=== PATIENT | male | born 2000 | race African-American/Black ===

== ENCOUNTER 2022-11-23 06:38 | Emergency (ER) | payer MEDICAID, SELFPAY ==
[2022-11-23 06:45] VITALS: BP 129/87; PULSE 65; RESP 16; TEMP 36.7; O2SAT 99; BMI 19.9
--- NOTE | 2022-11-23 06:50 | CRLHL7_ITS ---
For Patients: As a result of the Century Cures Act, medical imaging exams and procedure reports are released immediately into your electronic medical record. You may view this report before your referring provider. If you have questions, please contact your health care provider. INDICATION: Right lower quadrant abdominal pain.. TECHNIQUE: CT abdomen and pelvis acquired with 76 cc Isovue 370 IV contrast. COMPARISON: None. FINDINGS: Lower chest: Unremarkable. Liver: Unremarkable. Normal in size and attenuation. No suspicious masses. Gallbladder and bile ducts: Unremarkable. No stones or inflammation. No biliary dilatation. Pancreas: Unremarkable. No mass or inflammation. Spleen: Unremarkable. Normal in size. No masses. Adrenal glands: Unremarkable. No nodules. Kidneys: Unremarkable. No suspicious masses, stones, or hydronephrosis. GI tract: Unremarkable. Normal in caliber. No sign of mass or inflammation. A small amount of hyperdense material is seen within the appendix, which is otherwise normal in appearance (series 4, image 57). Vasculature: Abdominal aorta is normal in caliber. Mesenteric arteries are patent. Lymph nodes: No lymphadenopathy. Peritoneum/Abdominal Wall: Unremarkable. No sign of mass or infiltration. No free air or significant free fluid. Pelvis: Decompressed bladder. Otherwise unremarkable. Bones: Unremarkable for age. IMPRESSION: No acute abnormality identified to explain the patient`s abdominal pain. Please note that all CT scans at this facility use dose modulation, iterative reconstruction, and/or weight-based dosing when appropriate to reduce radiation dose to as low as reasonably achievable. Dictated by Kathrine Martin MD @ 11/23/2022 7:43:17 AM (Electronically Signed)
[2022-11-23 06:58] LABS: Basophils Absolute Auto 0.02 K/uL (0.00-0.30); Basophils Percent Auto 0.3 % (0.0-3.0); Eosinophils Absolute Auto 0.06 K/uL (0.00-0.50); Eosinophils Percent Auto 0.9 % (0.0-7.0); Hemoglobin* 14.2 gm/dL (13.5-17.5); Immature Granulocytes Abs Auto 0.01 K/uL (0.00-0.30); Immature Granulocytes Pct Auto 0.1 %; Lymphocytes Absolute Auto 2.67 K/uL (0.90-2.90); Mean Corpuscular HGB Conc 34 gm/dL (32-36); Mean Corpuscular Hemoglobin 30 pg (26-34); Mean Corpuscular Volume 89 fL (80-100); Monocytes Percent Auto 7.2 % (0.0-11.0); Neutrophils Absolute Auto 3.59 K/uL (1.7-7.0); Neutrophils Percent Auto 52.5 % (42.0-72.0); Platelet Count* 222 K/uL (140-440); RDW Coefficient of Variation % 12.8 % (11.5-15.5); Red Blood Count 4.72 m/uL (4.30-5.90); White Blood Count* 6.84 K/uL (4.50-11.00)
[2022-11-23 07:00] LABS: Slide Review Reflex No
--- NOTE | 2022-11-23 07:03 | ED_ITS ---
HPI - Abdominal Pain General Date Seen: 11/23/22 Chief Complaint: Abdominal Pain Stated Complaint: RLQ adominal pain Time Seen by Provider: 11/23/22 06:40 Source: patient Mode of arrival: ambulatory Limitations: no limitations History of Present Illness HPI narrative: Patient is a 22-year-old male presented emergency department for right lower quadrant pain. He states the pain started a couple days ago and has been getting worse. Initially states he had pain in his left lower quadrant and is now in the right lower quadrant. Denies however having pain in the umbilical region. Has not had any nausea or vomiting. Had a small bowel movement this morning otherwise been having normal bowel movements. Denies dysuria, fevers, chills, chest pain, shortness of breath, lightheadedness, dizziness, weakness, numbness. No previous abdominal surgery and still has his appendix. Has not taken anything for the pain. Related Data Home Medications Medication Instructions Recorded Confirmed No Known Home Medications 11/23/22 11/23/22 Allergies Allergy/AdvReac Type Severity Reaction Status Date / Time No Known Drug Allergies Allergy Verified 11/23/22 06:46 Review of Systems Status of ROS Reports: 10 or more systems reviewed and unremarkable except as noted in History and below PFSH PFS Social History Smoking Status: Never smoker Do you use any of these nicotine containing products: None How often do you have a drink containing alcohol: never How many standard drinks containing alcohol do you have on a typical day: 1 or 2 How often do you have six or more drinks on one occasion: Never AUDIT-C Alcohol total score: 0 Non-prescribed substance use: denies use Exam Narrative: Exam Narrative: Const: Well-nourished, Well-developed, in mild distress Eyes: PERRL, no conjunctival injection, and symmetrical lids HENT: Atraumatic external nose and ears. Moist mucous membranes. Neck: Symmetric, trachea midline, No thyromegaly. CVS: RRR, No murmurs or gallops. Peripheral pulses 2+ and equal in all extremities RESP: Unlabored respiratory effort. Clear to auscultation bilaterally. GI: Mild right lower quadrant tenderness around McBurney's point, Nondistended, No rebound or guarding. MSK:Extremities w/o deformity, Normal Active ROM Skin: Warm, Dry. No rashes or lesions. Neuro: Normal Muscle tone, No focal neurological deficits. Psych: Awake, Alert, & Oriented x3. Appropriate mood and affect. Const: Vital Signs, click to edit/add: Vital Signs - 24 hr 11/23/22 06:45 Temperature 98.1 F Pulse Rate [Left P ulse Oximeter] 65 Respiratory Rate 16 Blood Pressure [Le ft Upper Arm] 129/87 Pulse Oximetry 99 Oxygen Delivery Me thod Room Air Course Vital Signs Vital signs: Initial Vital Signs Temperature 98.1 F 11/23/22 06:45 Temperature Source Temporal Artery Scan 11/23/22 06:45 Pulse Rate 65 11/23/22 06:45 Respiratory Rate 16 11/23/22 06:45 Blood Pressure 129/87 11/23/22 06:45 Blood Pressure Mean 101 11/23/22 06:45 Blood Pressure Position Sitting 11/23/22 06:45 Pulse Oximetry 99 11/23/22 06:45 Oxygen Delivery Method Room Air 11/23/22 06:45 Vital Signs Temperature 98.1 F 11/23/22 06:45 Pulse Rate 65 11/23/22 06:45 Respiratory Rate 16 11/23/22 06:45 Blood Pressure 129/87 11/23/22 06:45 Pulse Oximetry 99 11/23/22 06:45 Oxygen Delivery Method Room Air 11/23/22 06:45 Temperature 98.1 F 11/23/22 06:45 Pulse Rate 65 11/23/22 06:45 Respiratory Rate 16 11/23/22 06:45 Blood Pressure 129/87 11/23/22 06:45 Pulse Oximetry 99 11/23/22 06:45 Oxygen Delivery Method Room Air 11/23/22 06:45 MDM - Abdominal Pain MDM Narrative Medical decision making narrative: Patient is a 22-year-old male presented emergency department for abdominal pain. Pain is in the right lower quadrant. Initially was in left lower quadrant since moved. States the pain is getting worse. Does not want anything for pain or nausea at this time. No previous abdominal surgeries. At this time differential includes appendicitis considering location. Seems unlikely to be cholecystitis, pancreatitis. Considering his age diverticulitis is less likely. No previous abdominal surgeries and did have a bowel movement today so an SBO seems unlikely. CBC, CMP, urinalysis, lipase were all ordered. CT scan of IV contrast also ordered. Lab work returns showing no concerning abnormalities. Patient still not required any medications. CT scan with IV contrast was ordered returned showing no acute abnormalities. No signs of appendicitis. I did look at the CT myself LIC large bowel constipation. This could be what is causing his pain. I spoke to the patient about constipation he states he is only having small bowel movements. I informed take several stool softeners and he is agreeable to this plan. Lab Data Labs: Lab Results 11/23/22 Range/Units 06:50 WBC 6.84 (4.50-11.00) K/uL RBC 4.72 (4.30-5.90) m/uL Hgb 14.2 (13.5-17.5) gm/dL Hct 42.0 (37.0-53.0) % MCV 89 (80-100) fL MCH 30 (26-34) pg MCHC 34 (32-36) gm/dL RDW Coeff of Zabrina 12.8 (11.5-15.5) % Plt Count 222 (140-440) K/uL Neut % (Auto) 52.5 (42.0-72.0) % Lymph % (Auto) 39.0 (20-44) % [place] % (Auto) 7.2 (0.0-11.0) % Eos % (Auto) 0.9 (0.0-7.0) % Baso % (Auto) 0.3 (0.0-3.0) % Neut # (Auto) 3.59 (1.7-7.0) K/uL Lymph # (Auto) 2.67 (0.90-2.90) K/uL [place] # (Auto) 0.50 (0.00-0.90) K/UL Eos # (Auto) 0.06 (0.00-0.50) K/uL Baso # (Auto) 0.02 (0.00-0.30) K/uL Abs Immat Gran (auto) 0.01 (0.00-0.30) K/uL Imm/Tot Granulo (auto) 0.1 % Sodium 140 (135-149) mmol/L Potassium 4.3 (3.6-5.1) mmol/L Chloride 103 (96-114) mmol/L Carbon Dioxide 26 (20-32) mmol/L Anion Gap 11 (7-15) mEq/L BUN 14 (5-24) mg/dL Creatinine 0.8 (0.5-1.5) mg/dL Estimated Creat Clear 141.59 Estimated GFR 127 ml/min Glucose 91 (60-115) mg/dL Calcium 9.3 (8.4-10.6) mg/dL Total Bilirubin 0.6 (0.1-1.5) mg/dL AST 26 (12-35) U/L ALT 14 (4-50) U/L Alkaline Phosphatase 61 (40-150) U/L Total Protein 7.7 (6.0-8.3) g/dL Albumin 4.7 (3.3-5.0) g/dL Lipase 44 (23-300) U/L Imaging Data CT scan - abdomen: Radiologist's impression: INDICATION: Right lower quadrant abdominal pain.. TECHNIQUE: CT abdomen and pelvis acquired with 76 cc Isovue 370 IV contrast. COMPARISON: None. FINDINGS: Lower chest: Unremarkable. Liver: Unremarkable. Normal in size and attenuation. No suspicious masses. Gallbladder and bile ducts: Unremarkable. No stones or inflammation. No biliary dilatation. Pancreas: Unremarkable. No mass or inflammation. Spleen: Unremarkable. Normal in size. No masses. Adrenal glands: Unremarkable. No nodules. Kidneys: Unremarkable. No suspicious masses, stones, or hydronephrosis. GI tract: Unremarkable. Normal in caliber. No sign of mass or inflammation. A small amount of hyperdense material is seen within the appendix, which is otherwise normal in appearance (series 4, image 57). Vasculature: Abdominal aorta is normal in caliber. Mesenteric arteries are patent. Lymph nodes: No lymphadenopathy. Peritoneum/Abdominal Wall: Unremarkable. No sign of mass or infiltration. No free air or significant free fluid. Pelvis: Decompressed bladder. Otherwise unremarkable. Bones: Unremarkable for age. IMPRESSION: No acute abnormality identified to explain the patient`s abdominal pain. Please note that all CT scans at this facility use dose modulation, iterative reconstruction, and/or weight-based dosing when appropriate to reduce radiation dose to as low as reasonably achievable. Dictated by Kathrine Martin MD @ 11/23/2022 7:43:17 AM Discharge Plan Discharge Clinical Impression: Constipation Patient Disposition: Home, Self-Care Condition: Stable Instructions: Constipation (DC) Additional Instructions: Sudden I believe you pain is coming from constipation. I recommend taking several stools softeners. This includes MiraLax, docusate, Senokot. He can take these medications twice a day. Make she take them regularly as taking them intermittently would not help. You can pick these up at any pharmacy [id number] Prescriptions: No Action No Known Home Medications Follow Up/Referrals: George Fontana MD [Primary Care Provider] - Stand Alone Forms: [employer] Info Instructions
[2022-11-23 07:11] LABS: Albumin* 4.7 g/dL (3.3-5.0); Chloride* 103 mmol/L (96-114); Potassium* 4.3 mmol/L (3.6-5.1); Sodium* 140 mmol/L (135-149)
[2022-11-23 07:13] LABS: Bilirubin Total* 0.6 mg/dL (0.1-1.5); Creatinine* 0.8 mg/dL (0.5-1.5); Est. Creatinine Clearance* 141.59; Estimated Glomerular Filt Rate 127 ml/min
[2022-11-23 07:14] LABS: Alanine Aminotransferase* 14 U/L (4-50); Alkaline Phosphatase* 61 U/L (40-150); Anion Gap 11 mEq/L (7-15); Aspartate Amino Transferase* 26 U/L (12-35); Blood Urea Nitrogen* 14 mg/dL (5-24); Carbon Dioxide* 26 mmol/L (20-32); Glucose* 91 mg/dL (60-115); Lipase* 44 U/L (23-300); Total Protein* 7.7 g/dL (6.0-8.3)
[2022-11-23 07:15] LABS: Calcium* 9.3 mg/dL (8.4-10.6)
[2022-11-23 07:57] LABS: Appearance Urine Clear (Clear); Bilirubin Urine Negative (Negative); Blood Urine Negative (Negative); Color Urine Yellow (Yellow); Glucose Urine Negative (Negative); Ketones Urine Negative (Negative); Leukocyte Esterase Urine Negative (Negative); Nitrite Urine Negative (Negative); Protein Urine Negative (Negative); Urobilinogen Urine 0.2 (0.2-1.0)
[2022-11-23 08:05] LABS: Amorphous Sediment Urine Moderate; RBC Urine 0-2 (0-2); Squamous Epithelial Cell Urine Few (None-Few); WBC Urine 0-2 (0-5)
== END 2022-11-23 08:09 | disposition home or self-care (01) ==
PROVIDERS: Emergency Provider Student in an Organized Health Care Education/Training Program; PCP Family Medicine
DX: K59.00 Constipation, unspecified (principal)
CPT/HCPCS: 36415; 74177; 80053; 81001; 83690; 85025; 99283; 99285; Q9967

== ENCOUNTER 2022-12-16 10:25 | Outpatient (CLI) | payer MEDICAID, SELFPAY | END 2022-12-16 10:26 | disposition home or self-care (01) | PROVIDERS: PCP Family Medicine; Visit Provider Family Medicine | DX: N50.812 Left testicular pain (principal) | CPT/HCPCS: 87491; 87591 ==

== ENCOUNTER 2022-12-16 10:53 | Outpatient (CLI) | payer MEDICAID, SELFPAY ==
--- NOTE | 2022-12-16 11:30 | CRLHL7_ITS ---
For Patients: As a result of the Century Cures Act, medical imaging exams and procedure reports are released immediately into your electronic medical record. You may view this report before your referring provider. If you have questions, please contact your health care provider. INDICATION: LEFT TESTICULAR PAIN COMPARISON: none TECHNIQUE: Yadav scale imaging was performed of the scrotum. In addition color Doppler and spectral Doppler analysis was performed of the testes. FINDINGS: The right testicle demonstrates normal arterial and venous blood flow on color Doppler and spectral Doppler analysis. Mildly increased Doppler flow regarding the left testicle. The testes have uniform echogenicity with no evidence of a suspicious mass. The right testis measures 3.9 x 2.3 x 2.5 cm in size and the left testis measures 3.8 x 2.1 x 2.7 cm. The epididymis appears normal bilaterally. No hydrocele. Possible left varicocele. IMPRESSION: Suggestion of mild left orchitis and left varicocele. No torsion. Dictated by Gamal Chin MD @ 12/17/2022 11:10:38 AM (Electronically Signed)
== END 2022-12-16 10:54 | disposition home or self-care (01) ==
PROVIDERS: PCP Family Medicine; Visit Provider Family Medicine
DX: N50.819 Testicular pain, unspecified (principal)
CPT/HCPCS: 76870; 93976

== ENCOUNTER 2023-03-08 14:37 | Outpatient (CLI) | payer MEDICAID, SELFPAY ==
--- OUTSIDE RECORDS SUMMARY | 2023-03-08 14:41 | XMS_ITS | Continuity of Care Document ---
Author Name [facility] Organization [facility] Care Team Providers Care Operator Vacuum Name Role Phone [facility] Unavailable Unavailable Social History Combined list of available smoking, tobacco, and other social history from [facility] and [facility] facilities. Social History Type Response Date Comment Sourc e This section is an empty social history section. [facility]
== END 2023-03-08 14:38 | disposition home or self-care (01) ==
PROVIDERS: PCP Family Medicine; Visit Provider Family Medicine
DX: R10.31 Right lower quadrant pain (principal)
CPT/HCPCS: 80053; 83516; 86140